=== PATIENT | male | born 1990 | race Caucasian/White ===

== ENCOUNTER 2016-12-19 14:26 | Emergency (ER) | payer MEDICAID ==
[2016-12-19] MEDS ORDERED: DEPA125C PO (14:53)
[2016-12-19] MEDS ORDERED: LORA0.5T11 PO (14:53)
[2016-12-19] MEDS ORDERED: BENT10CA PO (14:53)
[2016-12-19] MEDS ORDERED: CLON-412 PO (14:53)
[2016-12-19] MEDS ORDERED: ARIP1TAB6 PO (14:53)
[2016-12-19 14:54] VITALS: BP 133/72
== END 2016-12-19 17:34 | disposition home or self-care (01) ==
LOC: M ED 14:26
DX: F72 Severe intellectual disabilities (principal); R45.6 Violent behavior; Z79.899 Other long term (current) drug therapy

== ENCOUNTER 2016-12-26 12:20 | Emergency (ER) | payer MEDICAID ==
[~2016-12-26 12:20] MED LIST: ARIP1TAB6 PO; BENT10CA PO; CLON-412 PO; DEPA125C PO; LORA0.5T11 PO
[2016-12-26] MEDS ORDERED: LORazepam 2 MG/ML VIAL (J2060) IM ONE (12:45)
[2016-12-26] MEDS ORDERED: HALOPERIDOL 5 MG/ML VIAL (J1630) IM ONE (12:45)
[2016-12-26 13:05] LABS: MEAN CORPUSCULAR HEMOGLOBIN 29.1 pg (27.0-33.0); MEAN CORPUSCULAR HGB CONC 34.4 g/dl (32.0-36.5); MEAN CORPUSCULAR VOLUME 84.8 fl (80.0-96.0); RED CELL DISTRIBUTION WIDTH 13.8 % (11.5-14.5); WHITE BLOOD COUNT 12.8 K/mm3 (4.0-10.0)
[2016-12-26] MEDS ORDERED: DIVA125C5 (13:06)
[2016-12-26] MEDS ORDERED: DICY10SO (13:06)
[2016-12-26 13:38] LABS: ALBUMIN 4.1 GM/DL (3.2-5.2); ALBUMIN/GLOBULIN RATIO 1.14 (1.00-1.93); ALKALINE PHOSPHATASE 91 U/L (45-117); ALT/SGPT 47 U/L (12-78); ANION GAP 7 MEQ/L (8-16); AST/SGOT 46 U/L (15-37); BILIRUBIN,DIRECT 0.2 MG/DL (0.0-0.2); BILIRUBIN,TOTAL 0.5 MG/DL (0.2-1.0); BLOOD UREA NITROGEN 13 MG/DL (7-18); CALCIUM LEVEL 10.2 MG/DL (8.5-10.1); CARBON DIOXIDE LEVEL 27 MEQ/L (21-32); CHLORIDE LEVEL 100 MEQ/L (98-107); CREATININE FOR GFR 0.94 MG/DL (0.70-1.30); GLOMERULAR FILTRATION RATE > 60.0 (>60); GLUCOSE, FASTING 71 MG/DL (70-105); POTASSIUM SERUM 4.1 MEQ/L (3.5-5.1); SODIUM LEVEL 134 MEQ/L (136-145); TOTAL PROTEIN 7.7 GM/DL (6.4-8.2)
[2016-12-26 17:51] VITALS: BP 142/72
== END 2016-12-26 17:54 | disposition home or self-care (01) ==
LOC: M ED 12:20
DX: R45.1 Restlessness and agitation (principal); F79 Unspecified intellectual disabilities; Z79.899 Other long term (current) drug therapy
CPT/HCPCS: 36415; 80048; 80076; 80164; 84443; 85027; 96372; 99285; G0480; J1630; J2060